=== PATIENT | female | born 1985 | race Caucasian/White ===

== ENCOUNTER 2020-11-14 07:37 | Emergency (ER) | payer OTHER ==
[2020-11-14 07:47] VITALS: BP 110/85; PULSE 88; TEMP 97.3; BMI 30.9
== END 2020-11-14 08:20 | disposition home or self-care (01) ==
LOC: JER 07:37 → JERFT 07:37
PROC: 0HQ0XZZ Repair Scalp Skin, External Approach (ICD-10-PCS; principal; 2020-11-14)
DX: S01.81XA Laceration without foreign body of other part of head, initial encounter (principal); S09.90XA Unspecified injury of head, initial encounter
CPT/HCPCS: 99282-25